=== PATIENT | female | born 1995 | race Hispanic/Latino ===

== ENCOUNTER → 2019-03-30 10:27 | Outpatient (CLI) | payer OTHER, MEDICAID, SELFPAY ==
[2019-03-30 12:40] LABS: Urine N gonorrhoeae NOT DETECTED
[2019-03-30 12:41] LABS: Urine Chlamydia NOT DETECTED
== END ==
PROVIDERS: Family Provider Obstetrics & Gynecology; PCP Obstetrics & Gynecology; Visit Provider Physician Assistant
DX: N39.0 Urinary tract infection, site not specified (principal); N89.8 Other specified noninflammatory disorders of vagina; Z11.3 Encounter for screening for infections with a predominantly sexual mode of transmission
CPT/HCPCS: 87077; 87086; 87147; 87210; 87491; 87591

== ENCOUNTER → 2019-09-18 08:22 | Outpatient (CLI) | payer OTHER, MEDICAID, SELFPAY ==
[2019-09-18 17:12] LABS: Urine N gonorrhoeae NOT DETECTED
[2019-09-18 17:24] LABS: Urine Chlamydia NOT DETECTED
== END ==
PROVIDERS: Family Provider Obstetrics & Gynecology; PCP Obstetrics & Gynecology; Visit Provider Physician Assistant
DX: N89.8 Other specified noninflammatory disorders of vagina (principal); R35.0 Frequency of micturition
CPT/HCPCS: 87086; 87210; 87491; 87591